=== PATIENT | male | born 1980 | race Caucasian/White ===

== ENCOUNTER 2016-12-20 19:16 | Emergency (ER) | payer SELFPAY | END 2016-12-20 21:03 | disposition home or self-care (01) | LOC: ER1 19:16 | DX: L03.221 Cellulitis of neck (principal); M65.341 Trigger finger, right ring finger; Z88.1 Allergy status to other antibiotic agents | CPT/HCPCS: 29125; 73130; 99283 ==

== ENCOUNTER 2016-12-22 17:22 | Emergency (ER) | payer SELFPAY | END 2016-12-22 17:58 | disposition home or self-care (01) | LOC: ER1 17:22 | DX: L02.01 Cutaneous abscess of face (principal) | CPT/HCPCS: 99282 ==

== ENCOUNTER 2017-07-04 14:26 | Emergency (ER) | payer OTHER ==
[2017-07-04 16:43] LABS: HEMOGLOBIN 16.6 gm/dl (14.0-17.5); RED BLOOD COUNT 5.51 M/UL (4.20-5.50); WHITE BLOOD COUNT 21.6 K/UL (4.5-11.0)
[2017-07-04 17:00] LABS: BUN/CREATININE RATIO 29 (0-10)
== END 2017-07-04 20:53 | disposition home or self-care (01) ==
LOC: ER1 14:26
PROVIDERS: Physician Assistant
DX: J02.9 Acute pharyngitis, unspecified (principal); R22.0 Localized swelling, mass and lump, head; R00.0 Tachycardia, unspecified; I48.91 Unspecified atrial fibrillation; K21.9 Gastro-esophageal reflux disease without esophagitis; F17.210 Nicotine dependence, cigarettes, uncomplicated; Z88.1 Allergy status to other antibiotic agents; Z79.899 Other long term (current) drug therapy
CPT/HCPCS: 36415; 70491; 80053; 81001; 83605; 83880; 85025; 86140; 87081; 87880; 96374; 99284; J2930; J7030; J7050; Q9962